=== PATIENT | male | born 1990 | race Caucasian/White ===

== ENCOUNTER 2018-09-20 14:16 | Inpatient (IN) | payer BC ==
[~2018-09-20] VITALS: Ht 190.5 cm; Wt 96.3 kg
[2018-09-20 14:15] VITALS: BP 136/86
[2018-09-20] MEDS ORDERED: NICOTINE POLACRILEX 2 MG LOZENGE MM PRN (14:30)
[2018-09-20] MEDS ORDERED: LORazepam 1 MG tablet PO PRN ×2 (14:30→20:05)
[2018-09-20] MEDS ORDERED: mag hydrox/Alum hydrox/simeth 30ml oral suspension PO PRN (14:30)
[2018-09-20] MEDS ORDERED: tuberculin, purif. prot. deriv. 5 units/0.1ml ID ONE (14:30)
[2018-09-20] MEDS ORDERED: acetaminophen 325mg tablet PO PRN ×2 (14:30)
[2018-09-20] MEDS ORDERED: loperamide 2mg capsule PO PRN (14:30)
[2018-09-20] MEDS ORDERED: magnesium hydroxide 30ml (MOM) UD suspension PO PRN (14:30)
[2018-09-20] MEDS ORDERED: hydrOXYzine 25 MG tablet PO PRN (14:30)
[2018-09-20] MEDS ORDERED: Vit D2 PO (14:38)
[2018-09-20] MEDS ORDERED: GINK120C PO (14:38)
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
[2018-09-20 20:00] VITALS: BP 122/88
[2018-09-20] MEDS ORDERED: haloperidol 5mg tablet PO PRN (20:05)
[2018-09-20] MEDS ORDERED: diphenhydrAMINE 25mg capsule PO PRN (20:05)
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
[2018-09-21 08:00] VITALS: BP 128/86
[2018-09-21] MEDS: cholecalciferol (vitamin D) 400 unit tablet PO SCH (08:28)
[2018-09-21 08:40] LABS: HEMOGLOBIN A1C 5.3 % (4.5-6.2)
[2018-09-21 08:42] LABS: CHOL/HDL RATIO 5.6 (0.00-4.99); CHOLESTEROL 195 MG/DL (0-200); HDL CHOLESTEROL 35 MG/DL (35-60); LDL CHOLESTEROL 148 MG/DL (50-100); TRIGLYCERIDES 106 MG/DL (20-135)
[2018-09-21] MEDS: [UNRECOGNIZED DRUG - REMARK] PO NR (10:04)
--- NOTE | 2018-09-21 10:05 | NUR ---
MED Gingderek Bilraf HELD per hospital policy
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
[2018-09-21 20:00] VITALS: BP 153/104
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
[2018-09-22] MEDS: cholecalciferol (vitamin D) 400 unit tablet PO SCH (08:00)
[2018-09-22 09:17] VITALS: BP 146/84
[2018-09-22] MEDS: [UNRECOGNIZED DRUG - REMARK] PO NR (10:00)
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
[2018-09-22] MEDS ORDERED: PALIPERIDONE 3 MG TAB.ER.24 PO ONE (18:05)
[2018-09-22 19:55] VITALS: BP 142/84
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
[2018-09-23 08:00] VITALS: BP 133/85
[2018-09-23] MEDS: cholecalciferol (vitamin D) 400 unit tablet PO SCH (08:00)
[2018-09-23] MEDS: PALIPERIDONE 3 MG TAB.ER.24 PO SCH (08:00)
[2018-09-23] MEDS: [UNRECOGNIZED DRUG - REMARK] PO NR (10:47)
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
[2018-09-23 20:00] VITALS: BP_SYST 131; BP_SYST 142; BP_DIAS 83; BP_DIAS 84
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
[2018-09-24 08:00] VITALS: BP 122/78
[2018-09-24] MEDS: PALIPERIDONE 3 MG TAB.ER.24 PO SCH (08:00)
[2018-09-24] MEDS: cholecalciferol (vitamin D) 400 unit tablet PO SCH (08:00)
[2018-09-24] MEDS: [UNRECOGNIZED DRUG - REMARK] PO NR (10:57)
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
[2018-09-24 19:32] VITALS: BP 148/88
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
[2018-09-25 08:00] VITALS: BP 134/86
[2018-09-25] MEDS: cholecalciferol (vitamin D) 400 unit tablet PO SCH (08:00)
[2018-09-25] MEDS: PALIPERIDONE 3 MG TAB.ER.24 PO SCH (08:00)
[2018-09-25] MEDS: [UNRECOGNIZED DRUG - REMARK] PO NR (10:23)
--- NOTE | 2018-09-25 11:53 | NUR ---
Initial: Pt admit w/ psychosis PO 75-100% regular diet meeting needs. LBM 09/24. No nutrition concerns at this time. Addendum: 09/25/18 at [address] Amended: Links added.
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
[2018-09-25 19:51] VITALS: BP 138/48
[2018-09-25 20:00] VITALS: BP 150/84
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
[2018-09-26 08:00] VITALS: BP 136/93
[2018-09-26] MEDS: cholecalciferol (vitamin D) 400 unit tablet PO SCH (08:00)
[2018-09-26] MEDS: PALIPERIDONE 3 MG TAB.ER.24 PO SCH (08:00)
[2018-09-26] MEDS: [UNRECOGNIZED DRUG - REMARK] PO NR (10:12)
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
[2018-09-26 20:00] VITALS: BP 138/82
[2018-09-27 08:00] VITALS: BP 148/88
[2018-09-27] MEDS: cholecalciferol (vitamin D) 400 unit tablet PO SCH (08:00)
[2018-09-27] MEDS: PALIPERIDONE 3 MG TAB.ER.24 PO SCH (08:00)
[2018-09-27] MEDS ORDERED: benztropine 1 mg/ml 2ml ampule ONE (08:29)
[2018-09-27] MEDS ORDERED: haloperidol lactate 5mg/ml inj ONE (08:29)
[2018-09-27] MEDS ORDERED: LORazepam 2 mg/ml vial ONE (08:30)
[2018-09-27 08:55] VITALS: BP 149/88
[2018-09-27 09:10] VITALS: BP 123/70
[2018-09-27 09:30] VITALS: BP 138/77
[2018-09-27] MEDS: [UNRECOGNIZED DRUG - REMARK] PO NR (10:00)
[2018-09-27 11:45] VITALS: BP 137/76
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
[2018-09-27 20:00] VITALS: BP 121/20
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
[2018-09-28] MEDS: PALIPERIDONE 3 MG TAB.ER.24 PO SCH (07:37)
[2018-09-28] MEDS: cholecalciferol (vitamin D) 400 unit tablet PO SCH (07:38)
[2018-09-28 07:59] VITALS: BP 134/88
[2018-09-28] MEDS: [UNRECOGNIZED DRUG - REMARK] PO NR (10:01)
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
[2018-09-29 08:00] VITALS: BP 130/84
[2018-09-29] MEDS: cholecalciferol (vitamin D) 400 unit tablet PO SCH (08:00)
[2018-09-29] MEDS: PALIPERIDONE 3 MG TAB.ER.24 PO SCH (08:00)
[2018-09-29] MEDS: [UNRECOGNIZED DRUG - REMARK] PO NR (10:03)
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
[2018-09-29 19:54] VITALS: BP 137/86
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
[2018-09-30 08:00] VITALS: BP 121/78
[2018-09-30] MEDS: PALIPERIDONE 3 MG TAB.ER.24 PO SCH (08:00)
[2018-09-30] MEDS: cholecalciferol (vitamin D) 400 unit tablet PO SCH (08:00)
[2018-09-30] MEDS: [UNRECOGNIZED DRUG - REMARK] PO NR (10:21)
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
[2018-09-30 20:38] VITALS: BP 135/83
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
[2018-10-01 07:44] VITALS: BP 125/86
[2018-10-01] MEDS: cholecalciferol (vitamin D) 400 unit tablet PO SCH (08:00)
[2018-10-01] MEDS: PALIPERIDONE 3 MG TAB.ER.24 PO SCH (08:00)
[2018-10-01] MEDS: [UNRECOGNIZED DRUG - REMARK] PO NR (09:56)
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
[2018-10-01 20:13] VITALS: BP 140/84
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
[2018-10-02] MEDS: PALIPERIDONE 3 MG TAB.ER.24 PO SCH ×2 (08:00→21:14)
[2018-10-02] MEDS: cholecalciferol (vitamin D) 400 unit tablet PO SCH (08:00)
--- NOTE | 2018-10-02 10:05 | NUR ---
Art Therapy Group, Continued: Patient attended group art therapy 09/30/18. He was able to follow and complete all directives in the exercise. Patient was also able to share during the group process. His responses and theme to his work were static and perseverative in thought/content ie; I am standing at the doorway to hope... I am opening to hope and change, new possibilities... "It think I am a door. I feel I am a door. I wish I was a amarjit. I want to continue being a door. I need a ahmadi. I will be a door. I believe in doors. I am a door." Patient was asked what he would do IF he had a ahmadi to open and go through his door" He had no idea, his thoughts remaining fixed. Lana Gutierrez MA (Alena Marie) Licensed Marriage, Family Therapist #[id number] [facility] Expressive Arts Therapist Addendum: 10/02/18 at 1008 by Lana BARNHART Amended: Links added.
[2018-10-02] MEDS: [UNRECOGNIZED DRUG - REMARK] PO NR (10:13)
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
[2018-10-02 20:00] VITALS: BP 141/90
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
[2018-10-03] MEDS: cholecalciferol (vitamin D) 400 unit tablet PO SCH (08:55)
[2018-10-03 09:01] VITALS: BP 122/79
[2018-10-03] MEDS: [UNRECOGNIZED DRUG - REMARK] PO NR (10:08)
--- NOTE | 2018-10-03 10:57 | NUR ---
Reassessment: Per MD notes pt with a good appetite which is evident with documented 100% PO intake of meals meeting nutrient needs. LBM 09/28, pt with MoM not yet given per med list, d/w dietary to send power pudding at lunch today. Will continue to follow. Recommendations: 1) Continue regular diet 2) Bowel care 3) Weekly wts Addendum: 10/03/18 at [address] Amended: Links added.
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
[2018-10-03 20:00] VITALS: BP 153/90
[2018-10-03] MEDS: PALIPERIDONE 3 MG TAB.ER.24 PO SCH (21:08)
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
[2018-10-04] MEDS: cholecalciferol (vitamin D) 400 unit tablet PO SCH (07:20)
[2018-10-04 08:00] VITALS: BP 130/85
[2018-10-04] MEDS: [UNRECOGNIZED DRUG - REMARK] PO NR (09:25)
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
--- NOTE | 2018-10-04 17:42 | NUR ---
Pt. progress note; During afternoon assessment, client stated, "I hope my Mother and Father are ". When questioned about statement client stated, " I hate both of them and I hope they are ". No further issues for remainder of shift.
[2018-10-04 19:52] VITALS: BP 141/94
[2018-10-04] MEDS: PALIPERIDONE 3 MG TAB.ER.24 PO SCH (20:26)
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
[2018-10-05 07:30] VITALS: BP 95/68
[2018-10-05] MEDS: cholecalciferol (vitamin D) 400 unit tablet PO SCH (08:15)
[2018-10-05] MEDS: [UNRECOGNIZED DRUG - REMARK] PO NR (10:05)
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
--- NOTE | 2018-10-05 17:45 | NUR ---
Nursing Progress Note: Legal hold: 1370 Client on involuntary status for GD Report received from Edith Waldron RN Why are they here: Pt has been arrested multiple times for trespassing and this time has been in [facility] since November 2017. Pt unmedicated and very psychotic with poor hygiene. Pt is not competent to stand trial and so was placed here for stabilization of his psychiatric symptoms. Assessment What has happened this shift: Pt. asleep at start of shift. Pt. took medications and ate all meals. Pt. states, "I feel frustrated that I have to keep going to mock trials". Pt. interacting with peers and staff appropriately and thought process appears more linear than in the past. Pt. reports he likes to sleep on the floor because it helps his back pain. Pt. refused any pain medication. S/I, H/I: Denies A/VH: Denies Sleep: 5 hrs ADL's: Independent Group attendance: Pt. attends groups. Were meds taken: Yes Any med S/E: None reported, none observed Mental Status Exam Appearance: Appropriate in green unit scrubs and nonskid socks, hair disheveled but trimmed sung. Eye contact: Direct Behavior: Cooperative, bored, pacing halls, listening to headphones Speech: Soft, Normal tone and rate Mood: Pleasant, contemplative. Affect: Congruent with affect Thought process: linear Thought Content: Unknown Cognition: A&O X4 Insight: Poor Judgment: Poor Interventions PRN's used: None Therapeutic interventions: Maintained a safe and supportive environment, provided clear and simple instructions, attempted to reorient to reality, provided positive encouragement regarding pt. sleeping in his bed, encouraged independent performance of ADLs and socialization with others, and maintained Q 15 min safety checks. Addendum: 10/05/18 at 1811 by Armin Teixeira RN The above note is on the wrong pt.
[2018-10-05 20:00] VITALS: BP 147/89
[2018-10-05] MEDS: PALIPERIDONE 3 MG TAB.ER.24 PO SCH (20:57)
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
[2018-10-06] MEDS: cholecalciferol (vitamin D) 400 unit tablet PO SCH (07:21)
[2018-10-06 08:00] VITALS: BP 130/77
[2018-10-06] MEDS: [UNRECOGNIZED DRUG - REMARK] PO NR (10:18)
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
--- NOTE | 2018-10-06 17:20 | NUR ---
Nursing progress note: Client states that episodes of diarrhea have diminished and he is feeling, " A lot better". Client has had no behavioral episodes this afternoon and has been compliant with all aspects of his care today.
[2018-10-06 19:57] VITALS: BP 142/83
[2018-10-06] MEDS: PALIPERIDONE 3 MG TAB.ER.24 PO SCH (20:35)
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
[2018-10-07 07:40] VITALS: BP 139/90
[2018-10-07] MEDS: cholecalciferol (vitamin D) 400 unit tablet PO SCH (08:02)
[2018-10-07] MEDS: [UNRECOGNIZED DRUG - REMARK] PO NR (10:17)
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
[2018-10-07 20:01] VITALS: BP 135/90
[2018-10-07] MEDS ORDERED: PALIPERIDONE 3 MG TAB.ER.24 PO SCH (21:00)
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
[2018-10-08] MEDS: cholecalciferol (vitamin D) 400 unit tablet PO SCH (07:36)
[2018-10-08 08:04] VITALS: BP 121/70
[2018-10-08] MEDS: [UNRECOGNIZED DRUG - REMARK] PO NR (09:45)
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
--- NOTE | 2018-10-08 17:41 | NUR ---
Progress note: At about 1700 hours today, client approached bid writer and stated, " The [place] is going to need Armin and his hammer because the [place] are pissed off". When questioned further, client believes that manager education Armin has hammer that combined with those of the "[place]", can save the world from a devastating earthquake". Client then departed the conversation and returned to his room.
[2018-10-08 19:39] VITALS: BP 137/83
[2018-10-08] MEDS: PALIPERIDONE 3 MG TAB.ER.24 PO SCH (20:24)
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
[2018-10-09 07:26] VITALS: BP 126/74
[2018-10-09] MEDS: cholecalciferol (vitamin D) 400 unit tablet PO SCH (08:02)
--- NOTE | 2018-10-09 09:39 | NUR ---
Reassessment: Eating well, excellent appetite, 75-100% PO intake of meals meeting nutrient needs. Will continue to follow. Recommendations: 1) Continue regular diet 2) Bowel care as needed 3) Weekly wts Addendum: 10/09/18 at [address] Amended: Links added.
[2018-10-09] MEDS: [UNRECOGNIZED DRUG - REMARK] PO NR (10:55)
[2018-10-09] MEDS ORDERED: paliperidone palmitate inj 234 MG/1.5 ML SYRINGE IM ONE (17:05)
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
[2018-10-09 19:47] VITALS: BP 137/77
[2018-10-09] MEDS: PALIPERIDONE 3 MG TAB.ER.24 PO SCH (20:59)
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
[2018-10-10] MEDS: cholecalciferol (vitamin D) 400 unit tablet PO SCH (08:02)
[2018-10-10 08:11] VITALS: BP 127/81
[2018-10-10] MEDS: [UNRECOGNIZED DRUG - REMARK] PO NR (10:09)
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
[2018-10-10 19:00] VITALS: BP 130/79
[2018-10-10] MEDS: PALIPERIDONE 3 MG TAB.ER.24 PO SCH (20:20)
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
[2018-10-11] MEDS: cholecalciferol (vitamin D) 400 unit tablet PO SCH (07:37)
[2018-10-11 08:13] VITALS: BP 117/75
[2018-10-11] MEDS: [UNRECOGNIZED DRUG - REMARK] PO NR (09:37)
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
[2018-10-11 20:00] VITALS: BP 142/83
[2018-10-11] MEDS: PALIPERIDONE 3 MG TAB.ER.24 PO SCH (20:39)
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
[2018-10-12] MEDS: [UNRECOGNIZED DRUG - REMARK] PO NR (06:37)
[2018-10-12 08:00] VITALS: BP 134/80
[2018-10-12] MEDS: cholecalciferol (vitamin D) 400 unit tablet PO SCH (08:36)
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
[2018-10-12 20:00] VITALS: BP 141/90
[2018-10-12] MEDS: PALIPERIDONE 3 MG TAB.ER.24 PO SCH (20:47)
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
[2018-10-13] MEDS: cholecalciferol (vitamin D) 400 unit tablet PO SCH (07:11)
[2018-10-13 08:00] VITALS: BP 140/78
[2018-10-13] MEDS: [UNRECOGNIZED DRUG - REMARK] PO NR (09:18)
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
[2018-10-13 19:57] VITALS: BP 120/77
[2018-10-13] MEDS: PALIPERIDONE 3 MG TAB.ER.24 PO SCH (20:28)
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
[2018-10-14] MEDS: cholecalciferol (vitamin D) 400 unit tablet PO SCH (07:38)
[2018-10-14 07:46] VITALS: BP 118/75
[2018-10-14] MEDS: [UNRECOGNIZED DRUG - REMARK] PO NR (09:13)
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
[2018-10-14 20:00] VITALS: BP 134/83
[2018-10-14] MEDS: PALIPERIDONE 3 MG TAB.ER.24 PO SCH (20:48)
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
[2018-10-15 07:37] VITALS: BP 116/76
[2018-10-15] MEDS: cholecalciferol (vitamin D) 400 unit tablet PO SCH (08:23)
[2018-10-15] MEDS: [UNRECOGNIZED DRUG - REMARK] PO NR (10:00)
[2018-10-15] MEDS ORDERED: paliperidone palmitate 156 mg/ml inj.**IM only IM ONE (10:25)
[2018-10-15] MEDS ORDERED: CHOL400T32 PO (10:31)
--- NOTE | 2018-10-15 14:07 | NUR ---
DISCHARGE NOTE Patient refused his follow-up Invega injection today. He is not making any suicidal statements. He is concerned about being discharged to the [facility], but patient refuses to live with mother. Patient is discharged in stable condition. He is to follow-up with [facility] or [facility].
== END 2018-10-15 14:07 | disposition short-term general hospital (02) | DRG 885 ==
LOC: ADULT MH 14:16
PROVIDERS: ADMIT Psychiatry & Neurology Psychiatry; ATTEND Psychiatry & Neurology Psychiatry
DX: F20.3 Undifferentiated schizophrenia (principal); R45.851 Suicidal ideations; Z81.8 Family history of other mental and behavioral disorders; Z88.8 Allergy status to other drugs, medicaments and biological substances; Z56.0 Unemployment, unspecified; Z91.19 Patient's noncompliance with other medical treatment and regimen
CPT/HCPCS: 36415; 80061; 83036; 87081; 99285; J0515; J1630; J2060; Q0163

== ENCOUNTER 2018-10-16 10:11 | Emergency (ER) | payer BC ==
[~2018-10-16] VITALS: Ht 180.3 cm; Wt 96.0 kg
[~2018-10-16 10:11] MED LIST: CHOL400T32 PO; GINK120C PO
[2018-10-16 11:25] LABS: BASOPHILS % (AUTO) 0.6 % (0-1); EOSINOPHILS # (AUTO) 0.1 X10'3 (0-0.9); EOSINOPHILS % (AUTO) 0.8 % (0-6); HEMOGLOBIN 14.3 g/dl (14.0-17.9); LYMPHOCYTES # (AUTO) 1.7 X10'3 (1.1-4.8); LYMPHOCYTES % (AUTO) 22.6 % (21-51); MEAN CORPUSCULAR HEMOGLOBIN 30.6 PG (27.0-31.0); MEAN PLATELET VOLUME 9.1 FL (7.4-10.4); MONOCYTES # (AUTO) 0.8 X10'3 (0-0.9); MONOCYTES % (AUTO) 11.2 % (2-12); NEUTROPHILS # (AUTO) 4.8 X10'3 (1.8-7.7); NEUTROPHILS % (AUTO) 64.8 % (42-75); PLATELET COUNT 215 X10'3 (140-440); RED BLOOD COUNT 4.67 X10'6 (4.70-6.10); RED CELL DISTRIBUTION WIDTH 13.6 % (11.5-14.5); WHITE BLOOD COUNT 7.5 X10'3 (4.5-11.0)
[2018-10-16 11:39] LABS: ALANINE AMINOTRANSFERASE 51 U/L (12-78); ALBUMIN 3.8 G/DL (3.4-5.0); ALBUMIN/GLOBULIN RATIO 1.2 (1.1-1.5); ALKALINE PHOSPHATASE 110 IU/L (46-116); ANION GAP 9 (8-16); ASPARTATE AMINO TRANSFERASE 16 U/L (10-37); BILIRUBIN,TOTAL 0.4 MG/DL (0.1-1.0); BLOOD UREA NITROGEN 10 MG/DL (7-18); BUN/CREATININE RATIO 12.5 (5.4-32.0); CALCIUM 8.5 MG/DL (8.5-10.1); CHLORIDE 106 MMOL/L (99-107); GLUCOSE 92 MG/DL (70-104); POTASSIUM 4.2 MMOL/L (3.5-5.1); SODIUM 142 MMOL/L (135-145); TOTAL CARBON DIOXIDE 26.9 MMOL/L (24-32); eGFR > 90 ML/MIN
[2018-10-16 11:48] LABS: ETHANOL < 0.010 GM/DL (0.0-0.010)
--- NOTE | 2018-10-16 12:04 | NUR ---
Patient is calm and cooperative. Patient talking to Dr Irizarry about how his family does crazy things to him. Patient is delusional/psychotic. Continue to monitor.
[2018-10-16 12:10] LABS: CLARITY,URINE SLIGHTLY CLOUDY (Clear); COLOR,URINE YELLOW (Yellow); GLUCOSE, URINE NEGATIVE (Neg); KETONES,URINE NEGATIVE (Neg); LEUKOCYTE ESTERASE ,URINE NEGATIVE (Neg); NITRITES, URINE NEGATIVE (Neg); OCCULT BLOOD,URINE NEGATIVE (Neg); PH,URINE 8.5 (4.8-8.0); PROTEIN,URINE NEGATIVE (Neg); UROBILINOGEN,URINE 0.2 E.U/dL (0.2-1.0)
[2018-10-16 12:11] LABS: UA COLLECTION TYPE CLN CATCH MIDSTREAM
[2018-10-16 12:17] LABS: URINE AMPHETAMINE SCREEN NEGATIVE (Neg); URINE BARBITUATE SCREEN NEGATIVE (Neg); URINE BENZODIAZEPINES SCREEN NEGATIVE (Neg); URINE CANNABINOID SCREEN NEGATIVE (Neg); URINE COCAINE SCREEN NEGATIVE (Neg); URINE METHADONE SCREEN NEGATIVE (Neg); URINE OPIATE SCREEN NEGATIVE (Neg); URINE PHENCYCLIDINE SCREEN NEGATIVE (Neg)
[2018-10-16 12:20] LABS: MUCUS STRANDS MODERATE /LPF (Neg); SQUAMOUS EPITHELIAL CELL,UR FEW /LPF (FEW)
[2018-10-16 12:21] LABS: AMORPHOUS PHOSPHATES 2+
[2018-10-16 12:22] LABS: BACTERIA,URINE FEW /HPF (Neg); RBC,URINE 0-2 /HPF (0-2); WBC,URINE 0-4 /HPF (0-4)
--- NOTE | 2018-10-16 15:29 | NUR ---
Patient sleeping on right side. No distress observed. Continue to monitor.
--- NOTE | 2018-10-16 16:26 | NUR ---
Patient sleeping on left side. No distress observed. Continue to monitor.
--- NOTE | 2018-10-16 18:36 | NUR ---
Patient eating dinner. No distress observed.
--- NOTE | 2018-10-16 20:35 | NUR ---
NAI Lindsay evaluating patient. Continue to monitor.
[2018-10-16] MEDS ORDERED: risperiDONE 2mg tablet PO SCH ×2 (21:00→21:27)
[2018-10-16] MEDS ORDERED: risperiDONE 0.5mg tablet PO ONE (21:30)
[2018-10-16] MEDS ORDERED: risperiDONE 0.5mg tablet PO SCH (21:30)
--- NOTE | 2018-10-16 21:55 | NUR ---
Patient took his medication without any problem. Patient laying with light on and does not want light turned off. Patient states because he is leaving soon. No distress observed. Continueto monitor.
--- NOTE | 2018-10-16 22:16 | NUR ---
Patient sleeping on his right side. No distress observed. Continue to monitor.
--- NOTE | 2018-10-16 23:34 | NUR ---
Patient sleeping supine. No distress observed. Continue to monitor.
--- NOTE | 2018-10-17 | NUR ---
Received report from Mary Jo CUEVA, patient awake sitting up in bed at this time, given sandwich and juice. Patient is cooperative, and polite.
--- NOTE | 2018-10-17 01:06 | NUR ---
Patient sleeping on left side no signs of distress
--- NOTE | 2018-10-17 02:01 | NUR ---
Patient sleeping on back no sign of distress
--- NOTE | 2018-10-17 02:33 | NUR ---
breaking primary rn, pt is laying on his left side, eyes closed, appears to be asleep, no s/s of distress observed
--- NOTE | 2018-10-17 03:08 | NUR ---
Patient sleeping on back, no distress
--- NOTE | 2018-10-17 04:00 | NUR ---
Patient up to restroom with no assistance, returned to bed. Laying on back no distress
--- NOTE | 2018-10-17 05:03 | NUR ---
Patient resting comfortably on right side, no distress
--- NOTE | 2018-10-17 06:37 | NUR ---
PT UP TO BR. STEADY GATE. BACK TO BED RESTING WITH EYES CLOSED.
--- NOTE | 2018-10-17 07:27 | NUR ---
PT RESTING ON BACK. RR EQUAL AND UNLABORED
[2018-10-17] MEDS ORDERED: NO HOME MEDS (10:12)
--- NOTE | 2018-10-17 10:45 | NUR ---
Pt walks to bathroom and back. Now in bed relaxing. No s/s agitation.
--- NOTE | 2018-10-17 11:01 | NUR ---
DISCUSSED THIS CASE WITH TAD TUTOR, ONEAL MCKEON, AT [facility]. COMMUNICATED THAT PT WAS DISCHARGED 10/15/18 FROM [facility] WITH PLAN TO OBTAIN ASSESSMENT AT [facility]. REQUESTED THAT PT RECIEVE INITIAL COMPREHENSIVE ASSESSMENT TO OPEN PT TO SERVICES. SHE STATES A CLINICIAN WILL COME AND PROVIDE ASSESSMENT.
--- NOTE | 2018-10-17 13:23 | NUR ---
PT UP TO BR. NOW BACK IN BED EATING LUNCH
--- NOTE | 2018-10-17 16:46 | NUR ---
Report received from ANAY Harrison. All questions answered. I agree with previously documented assessment. Patient resting comfortably in bed. No needs at this time. I will assume care of pt now.
--- NOTE | 2018-10-17 17:15 | NUR ---
Patient went to bathroom independently and now back in bed. No needs at this time.
--- NOTE | 2018-10-17 18:30 | NUR ---
rcvd report from ANAY Cano, pt is in bed supine, awake, and aware, calm, no s/s of distress observed
--- NOTE | 2018-10-17 19:30 | NUR ---
pt is laying on right side, eyes closed, no s/s of distress observed
--- NOTE | 2018-10-17 20:26 | NUR ---
pt states that he is able and willing to talk to me now
--- NOTE | 2018-10-17 21:22 | NUR ---
pt is laying on his right side, eyes closed, appears to be asleep, no s/s of distress observed
--- NOTE | 2018-10-17 21:43 | NUR ---
[facility] done with pt
--- NOTE | 2018-10-17 22:30 | NUR ---
pt is supine in bed, no s/s of distress, eyes closed appears to be asleep, regular breathing present
--- NOTE | 2018-10-17 23:45 | NUR ---
pt is in bed, supine, reqular breathing present, appears to be asleep, no s/s of distress observed
--- NOTE | 2018-10-18 00:34 | NUR ---
pt is in bed supine, no s/s of distress observed appears to be sleeping
--- NOTE | 2018-10-18 01:36 | NUR ---
pt is in bed on right side, no s/s of distress observed, regular spontaineous breathing present
--- NOTE | 2018-10-18 02:31 | NUR ---
pt up to the bathroom, back to bed, no distress observed
--- NOTE | 2018-10-18 02:59 | NUR ---
pt up saying that his bed is very uncomfortable, we adjusted his bed for him, this did not work, he asked if he could stand beside the bed, we got him a chair to sit in until he id tired to sleep
--- NOTE | 2018-10-18 03:15 | NUR ---
spoke to Arcelia in pharmacy, requested that she re-time pt order for Risperdal as it was not inputed into the eMar so that the medication could be given, she would not retime, I went over to main ER and obtained order from Dr Barrera to continue,
[2018-10-18] MEDS ORDERED: risperiDONE 0.5mg tablet PO ONE (03:55)
[2018-10-18] MEDS ORDERED: risperiDONE 2mg tablet PO ONE (03:55)
--- NOTE | 2018-10-18 04:15 | NUR ---
pt is resting on the floor after taking his risprerdal, he is uncomfortable in the bed and is requesting a new custodial, or new bed.
--- NOTE | 2018-10-18 05:47 | NUR ---
pt was asked about 10/10 pain he reported to LINAGORA, he states he wants a different room and bed, refuses pain medication intervention for pain
--- NOTE | 2018-10-18 11:26 | NUR ---
Pt talking to RN about if they want him to join [employer] why dont they just ask him too now. Pt states the man at the mission said he could go for a walk and join [employer]. Pt proceeds to talk about many other vidoe games and what he would do to improve them. Pt looks tired and was up most of the night.
--- NOTE | 2018-10-18 13:48 | NUR ---
Breaking Primary RN, Pt sleeping on right side. No acute distress observed.
--- NOTE | 2018-10-18 14:27 | NUR ---
Daniel from [facility] called for a nurse to nurse report. Pt has been accepted to [facility] by Dr. Hill. [phone]. Awaiting transfer time.
--- NOTE | 2018-10-18 15:24 | NUR ---
Pt has been accepted by [facility] and will be oicked up and trasferred at 18:00 today.
--- NOTE | 2018-10-18 18:10 | NUR ---
Received report from ANAY Harrison. Patient is awake and alert on room air, in no apparent distress. In nurse's view. Will continue to monitor.
--- NOTE | 2018-10-18 18:45 | NUR ---
Patient transferred to [facility], accompanied by Emy. Escorted out of unit in a steady gait by security. All belongings sent with patient.
[2018-10-18 18:53] VITALS: BP 126/76
== END 2018-10-18 18:45 ==
LOC: ER 10:12
DX: F29 Unspecified psychosis not due to a substance or known physiological condition (principal); F20.9 Schizophrenia, unspecified; Z98.890 Other specified postprocedural states; Z88.6 Allergy status to analgesic agent; Z79.899 Other long term (current) drug therapy
CPT/HCPCS: 36415; 80053; 80305; 80320; 81001; 84443; 85025; 99285